=== PATIENT | female | born 1960 | race Caucasian/White ===

== ENCOUNTER 2017-06-30 17:37 | Emergency (ER) | payer SELFPAY ==
[~2017-06-30] VITALS: Ht 165.1 cm; Wt 68.0 kg
[2017-06-30 18:13] LABS: Basophils # (auto) 0.1 uL; Basophils % (auto) 1.4 % (0.0-2.0); Eosinophils # (auto) 0.2 uL; Eosinophils % (auto) 2.8 % (0.0-7.0); Hemoglobin 14.8 g/dL (12.2-16.2); Lymphocytes # (auto) 4.3 uL; Lymphocytes % (auto) 50.9 % (10.0-50.0); Mean Corpuscular Hgb Conc. 33.7 g/dL (32.0-36.0); Monocytes # (auto) 0.5 uL; Monocytes % (auto) 6.5 % (0.0-12.0); Neutrophils # (auto) 3.2 uL; Neutrophils % (auto) 38.4 % (37.0-80.0); Nucleated Red Blood Cells % 0.2 %; Platelet Count (auto) 312 10^3/uL (140-450); Red Blood Cells 4.78 10^6/uL (4.0-5.20); Red Cell Distribution Width 15.2 % (11.8-14.3); White Blood Cell 8.4 10^3/uL (4.4-10.8)
[2017-06-30 18:29] LABS: Albumin 4.4 g/dL (3.4-5.0); BUN/Creatinine Ratio 12.2; Calcium 8.9 mg/dL (8.5-10.1); Potassium 4.1 mmol/L (3.5-5.1)
[2017-06-30 18:31] LABS: Acetaminophen < 2.0 ug/mL (10-30); Salicylate 3.4 mg/dL (2.8-20.0)
[2017-06-30 18:32] LABS: Bilirubin, Total 0.3 mg/dL (0.2-1.0); Total Protein 8.7 g/dL (6.4-8.2)
[2017-06-30 19:34] VITALS: BP 126/83
[2017-06-30] MEDS ORDERED: SODIUM CHLORIDE 0.9% 3,000 ML IV ONE (20:00)
[2017-06-30] MEDS ORDERED: diphenhdrAMINE HCL 50 MG/1 ML VL ONE (20:10)
[2017-06-30] MEDS ORDERED: HALOPERIDOL LACTATE 5 MG/ML INJ VIAL ONE (20:10)
[2017-06-30] MEDS ORDERED: LORazepam 2MG/ML-1ML VIAL ONE (20:10)
[2017-06-30] MEDS ORDERED: diphenhdrAMINE HCL 50 MG/1 ML VL IV ONE (23:15)
[2017-06-30] MEDS ORDERED: HALOPERIDOL LACTATE 5 MG/ML INJ VIAL IM ONE (23:15)
[2017-06-30] MEDS ORDERED: LORazepam 2MG/ML-1ML VIAL IV ONE (23:15)
== END 2017-07-01 01:49 ==
LOC: EDBD 17:37 → ER 17:37
DX: F41.9 Anxiety disorder, unspecified (principal); F32.9 Major depressive disorder, single episode, unspecified; F10.129 Alcohol abuse with intoxication, unspecified; R45.851 Suicidal ideations; F23 Brief psychotic disorder
CPT/HCPCS: 36415; 80053; 80320; 80329; 85025; 99284; J1200; J1630; J2060